=== PATIENT | male | born 1965 | race Caucasian/White ===

== ENCOUNTER 2016-05-04 12:05 | Emergency (ER) | payer OTHER ==
[~2016-05-04] VITALS: Ht 175.3 cm; Wt 96.2 kg
[~2016-05-04 12:05] MED LIST: AMOXICILLIN500 MG PO; BACTRIM DS 8001 TAB PO
--- NOTE | 2016-05-04 12:36 | ED CARDIAC/CP/PALPITATIONS ---
History of Present Illness General Chief Complaint: Chest Pain Stated Complaint: SOB, HEARTBURN, TIGHTNESS IN CHEST X FEW DAYS Source: patient Exam Limitations: no limitations Vital Signs & Intake/Output Vital Signs & Intake/Output Vital Signs Date Time Temp Pulse Resp B/P Pulse O2 O2 Flow FiO2 Ox Delivery Rate 05/04 1643 74 18 120/89 97 Room Air 05/04 1406 98.0 68 18 124/81 97 Room Air 05/04 1237 99 Room Air 05/04 1216 97.1 74 20 138/87 98 Room Air Allergies Coded Allergies: NO KNOWN ALLERGIES (03/21/16) Reconcile Medications No Known Home Medications Triage Note: PT C/O TIGHTNESS IN CHEST AND SOB X 1 WEEK. PT DENIES CARDIAC HX. Triage Nurses Notes Reviewed? yes Onset: Gradual Duration: intermittent Timing: recent history Quality/Severity: moderate, pressure Location: substernal Radiation: no radiation Activities at Onset: none HPI: Patient is a 50-year-old male with a past medical history of Lyme disease, last antibiotic USAGE was approximately 3-4 months ago who presents emergency room with a one-week history of intermittent substernal chest heaviness and shortness of breath. Patient denies any pattern to the onset of symptoms and states they' re paroxysmal in nature. Patient states that approximately 2 years ago he received an outpatient cardiac stress test and EKG with unremarkable findings because he turned 48. Patient's approximate one month ago received surgical intervention of left bunionectomy Patient denies any fever, chills, neck pain or back pain arm pain jaw pain neck pain leg swelling nausea vomiting diaphoresis hemoptysis history of PE history of DVT Patient does state that during onset of symptoms he does feel lightheaded. Denies any exertional dyspnea or chest pain. Patient drink alcohol on weekends and occasionally smokes cigars denies any illicit drug use. Denies any significant family history of cardiac disease (MIREILLE DUNN,CIPRIANO) Past History Travel History Traveled to [place] past 21 day No Medical History Any Pertinent Medical History? none Neurological: NONE EENT: NONE Cardiovascular: NONE Respiratory: NONE Gastrointestinal: NONE Hepatic: NONE Renal: NONE Musculoskeletal: NONE Psychiatric: NONE Endocrine: NONE Blood Disorders: NONE Cancer(s): NONE POULTRY RAISER/Reproductive: NONE Surgical History Surgical History: non-contributory Psychosocial History What is your primary language Togolese Tobacco Use: Never used ETOH Use: occasional use Illicit Drug Use: denies illicit drug use Family History Hx Contributory? No (CIPRIANO SEBASTIAN) Review of Systems Review of Systems Constitutional: Reports: no symptoms. EENTM: Reports: no symptoms. Respiratory: Reports: see HPI, short of breath. Denies: cough, hemoptysis, sputum production. Cardiovascular: Reports: see HPI, chest pain. Denies: edema, peripheral edema. GI: Reports: no symptoms. Genitourinary: Reports: no symptoms. Musculoskeletal: Reports: no symptoms. Skin: Reports: no symptoms. Neurological/Psychological: Reports: no symptoms. Hematologic/Endocrine: Reports: no symptoms. Immunologic/Allergic: Reports: no symptoms. All Other Systems: Reviewed and Negative (CIPRIANO SEBASTIAN) Physical Exam Physical Exam General Appearance: well developed/nourished, no apparent distress, alert Cardiovascular: regular rate/rhythm Comments: Well-developed well-nourished person in no acute distress HEENT: Normal EENT exam, extraocular motion intact, no nystagmus. Pupils equally round and reactive to light and accommodation. Nose is atraumatic. External auditory canal and Tympanic membranes clear. Pharynx normal. No swelling or edema. Neck: Supple, no lymphadenopathy, normal range of motion without pain or tenderness Back: Nontender, no CVA tenderness. Cardiovascular: Regular rate and rhythms no murmurs rubs or gallops, normal JVP Respiratory: Chest nontender. No respiratory distress.breath sounds clear to auscultation bilaterally Abdomen: Soft, nontender nondistended, no appreciable organomegaly. Normal bowel sounds. No ascites Extremity: No edema, no calf tenderness to palpation, normal and equal pulses. Neuro: Alert oriented x3, motor sensory normal, Skin: No appreciable rash on exposed skin, skin is warm and dry. Psych: Mood and affect is normal, memory and judgment is normal. Core Measures ACS in differential dx? Yes Severe Sepsis Present: No Septic Shock Present: No (CIPRIANO SEBASTIAN) Progress Differential Diagnosis: AMI, aortic dissection, atrial fibrillation, cholecystitis, CHF/pulm edema, costochondritis, hyperkalemia, hypovolemia, hyperthyroid, hyperventilation, intracranial hemorrhage, musculoskeletal pain, myocarditis, pancreatitis, pericarditis, pneumonia, pneumothorax, PSVT, pulmonary embolism, PUD/GERD, PVCs/PACs, respiratory failure, sepsis, unstable angina, V-fib/V-Tach, WPW syndrome Plan of Care: Orders Procedure Date/time Status TROPONIN LEVEL 05/04 1630 Complete EKG 05/04 1630 Active Add-on Test (ER Only) 05/04 1251 Active Add-on Test (ER Only) 05/04 1250 Active Telemetry/Director Veterinary 05/04 1250 Active THYROID STIMULATING HORMONE 05/04 1230 Complete THYROXINE 05/04 1230 Complete D-DIMER 05/04 1230 Complete TROPONIN LEVEL 05/04 1229 Complete COMPREHENSIVE METABOLIC PANEL 05/04 1229 Complete CBC WITHOUT DIFFERENTIAL 05/04 1229 Complete EKG 05/04 1207 Active EKG 05/04 1206 Active Laboratory Tests 05/04/16 1633: Troponin I < 0.01 05/04/16 1230: Anion Gap 14, Estimated GFR > 60, BUN/Creatinine Ratio 17.0, Glucose 98, Calcium 10.0, Total Bilirubin 0.7, AST 37, ALT 75 H, Alkaline Phosphatase 62, Troponin I < 0.01, Total Protein 8.0, Albumin 4.9, Globulin 3.1, Albumin/Globulin Ratio 1.6, TSH 1.750, Thyroxine (T4) 7.2, D-Dimer < 200, CBC w Diff NO MAN DIFF REQ, RBC 5.80, MCV 83.9, MCH 28.5, RDW 13.0, MPV 8.1, Gran % 59.9, Lymphocytes % 32.1 , Monocytes % 6.8, Eosinophils % 0.8, Basophils % 0.4, Absolute Granulocytes 3.7 , Absolute Lymphocytes 2.0, Absolute Monocytes 0.4, Absolute Eosinophils 0.1, Absolute Basophils 0, PUBS MCHC 34.0 Patient currently is in no apparent distress clear lungs, patient, telemetry monitored normal sinus rhythm, EKG was normal sinus rhythm. D-dimer was unremarkable essentially ruling out pulmonary embolism. 05/04/2016 2:55:11 PM patient was made aware of initial blood work and EKG and chest x-ray. Patient currently denies any pain and has not had any chest pain or heaviness in the emergency room. Patient had initial troponin negative however patient will be obtaining a second set of cardiac enzymes 4 hours after Troponin and EKG will be ordered at 1630 Patient currently in no apparent distress normal sinus rhythm on telemetry 05/04/2016 4:27:23 PM reevaluation the patient, patient still is in no apparent distress denies any chest pain symptoms and today second troponin will be ordered shortly. Patient ambulated down the entire hallway in emergency room and oxygen saturation was 96% room air patient denies having any shortness of breath symptoms or chest complaints. 05/04/2016 5:34:03 PM- patient's second cardiac enzyme and EKG were unremarkable with no changes. Upon discharge patient looks well no apparent distress, I strongly advise and stressed the importance of cardiology follow-up tomorrow and he will comply. Discussed patient with who agrees with disposition and plan. (CIPRIANO SEBASTIAN) Diagnostic Imaging: Viewed by Me: Radiology Read. Radiology Impression: no acute abnormality, no fracture CXR Impression: no acute abnormality Initial ED EKG: NORMAL SINUS RHYTHM 75 BEATS PER MINUTES, lvh, lad Repeat EKG: unchanged Comments: PATIENT: MIGUELINA ANTHONY PRESENT AGE: 50 PATIENT ACCOUNT NO: [id number] : 63 LOCATION: [facility] ORDERING PHYSICIAN: CIPRIANO DUNN SERVICE DATE: 05/04/16 EXAM TYPE: RAD - XRY-CHEST XRAY, PA AND LATERAL EXAMINATION: XR CHEST CLINICAL INFORMATION: Chest pressure COMPARISON: 07/13/2010 TECHNIQUE: PA and lateral views of the chest were obtained. FINDINGS: The lungs are well expanded. There is no focal consolidation, edema, or effusion. No pneumothorax. The cardiomediastinal silhouette is within normal limits. No acute osseous abnormality. IMPRESSION: Clear lungs. (CIPRIANO SEBASTIAN) Departure Departure Disposition: HOME OR SELF CARE Condition: Stable Clinical Impression Primary Impression: Chest heaviness Referrals: TIP NAVAS,ARLEY HERNANDEZ MD,DESHAUN Don (PCP/Family) Additional Instructions: As discussed tomorrow please call electronic warfare technician Arley Johnson MD to make an appointment to be seen for your symptoms. If symptoms worsen or if YOU develop a concerning new onset of a symptom return to emergency room immediately. Departure Forms: Customer Survey General Discharge Information Prescriptions: Current Visit Scripts No Known Home Medications (CIPRIANO SEBASTIAN) PA/COMPUTER NETWORKER Co-Sign Statement Statement: ED Attending supervision documentation- [x] I saw and evaluated the patient. I have also reviewed all the pertinent lab results and diagnostic results. I agree with the findings and the plan of care as documented in the MONA's/COMPUTER NETWORKER's documentation. [] I have reviewed the ED Record and agree with the PA's/COMPUTER NETWORKER's documentation. [] Additions or exceptions (if any) to the PAs/COMPUTER NETWORKER's note and plan are summarized below: [] (SHARLENE RESTREPO,MONICA Damon) Critical Care Note Critical Care Note Critical Care Time: non-applicable (CIPRIANO SEBASTIAN)
[2016-05-04 12:40] LABS: ABSOLUTE BASOPHIL COUNT 0 /CUMM (0.0-0.2); ABSOLUTE EOSINOPHIL COUNT 0.1 /CUMM (0.0-0.7); ABSOLUTE GRANULOCYTE CT 3.7 /CUMM (1.4-6.5); ABSOLUTE MONOCYTE COUNT 0.4 /CUMM (0.10-0.60); BASOPHIL % 0.4 % (0.0-2.0); EOSINOPHIL % 0.8 % (0-5); GRANULOCYTE % 59.9 % (42.2-75.2); HEMATOCRIT 48.7 % (42-52); MEAN CORPUSCULAR HGB 28.5 PG (27.0-31.0); MEAN CORPUSCULAR VOLUME 83.9 FL (80.0-94.0); MEAN PLATELET VOLUME 8.1 FL (7.4-10.4); PLATELET COUNT 181 /CUMM (130-400); WHITE BLOOD CELL COUNT 6.2 /CUMM (4.8-10.8)
--- NOTE | 2016-05-04 14:06 | RADIOLOGY REPORT ---
EXAMINATION: XR CHEST CLINICAL INFORMATION: Chest pressure COMPARISON: 07/13/2010 TECHNIQUE: PA and lateral views of the chest were obtained. FINDINGS: The lungs are well expanded. There is no focal consolidation, edema, or effusion. No pneumothorax. The cardiomediastinal silhouette is within normal limits. No acute osseous abnormality. IMPRESSION: Clear lungs.
[2016-05-04 16:43] VITALS: BP 120/89
== END 2016-05-04 17:43 ==
LOC: ERH 12:05
PROVIDERS: Physician Assistant
DX: R07.89 Other chest pain (principal)
CPT/HCPCS: 93005; 93010